=== PATIENT | female | born 1995 | race Caucasian/White ===

== ENCOUNTER 2023-06-04 17:16 | Emergency (ER) | payer MEDICAID ==
[~2023-06-04] VITALS: Ht 160 cm; Wt 64.0 kg
[2023-06-04 17:23] VITALS: BP 116/74; PULSE 78; RESP 18; TEMP 98.2; O2SAT 100
[2023-06-04] MEDS ORDERED: ONDANSETRON 4MG ODT PO ONE (17:45)
[2023-06-04] MEDS ORDERED: FAMOTIDINE 20MG TABLET PO ONE (17:45)
[2023-06-04] MEDS ORDERED: MAGNESIUM/ALUMINUM HYDROXIDE/SIMETHICONE 30ML UDC PO ONE (18:00)
[2023-06-04 18:12] LABS: BASOPHILS % 0.4 % (0.0-2.0); HEMATOCRIT. 30.3 % (36.0-48.0); HEMOGLOBIN. 10.3 g/dL (12.0-16.0); LYMPHOCYTES % 12.7 % (20.0-50.0); MEAN CORPUSCULAR HEMOGLOBIN 30.2 pg (28.0-32.0); MEAN CORPUSCULAR HGB CONC 34.1 g/dL (31.0-37.0); MEAN CORPUSCULAR VOLUME 88.8 fL (81.0-99.0); MEAN PLATELET VOLUME 8.2 fl (7.4-10.4); MONOCYTES % 6.1 % (2.0-8.0); NEUTROPHILS % 80.8 % (40.0-76.0); PLATELET 149 x1000/uL (130-400); RED BLOOD CELL COUNT 3.41 mill/uL (4.2-5.4); RED CELL DISTRIBUTION WIDTH 13.4 % (11.6-14.6); WHITE BLOOD COUNT 5.4 x1000/uL (4.5-11.0)
[2023-06-04 18:19] LABS: CHLORIDE 109 mEq/L (98-107); INDEX HEMOLYSI 1 (1-3); INDEX ICTERIC 1 (1-4); INDEX LIPEMIC 1 (1-3); POTASSIUM 3.7 mEq/L (3.5-5.1); SODIUM 136 mEq/L (136-145)
[2023-06-04 18:28] LABS: ALANINE AMINOTRANSFERASE 29 IU/L (13-61); ALBUMIN 3.4 g/dL (3.4-5.0); ASPARTATE AMINOTRANSFERASE 28 IU/L (15-37); BILIRUBIN TOTAL 0.8 mg/dL (0.1-1.0); CARBON DIOXIDE 23 mEq/L (21-32); CREATININE 0.6 mg/dL (0.6-1.3); GLUCOSE 89 mg/dL (70-105); PROTEIN TOTAL 8.3 g/dL (6.0-8.3); TROPONIN I HIGH SENSITIVITY 4 ng/L (<54); UREA NITROGEN BLOOD 9 mg/dL (7-21)
[2023-06-04 18:29] LABS: HCG SCREEN NEGATIVE
[2023-06-04] MEDS ORDERED: FAMO20TA8 PO (19:03)
[2023-06-04] MEDS ORDERED: ONDA4TAB11 PO (19:03)
[2023-06-04] MEDS ORDERED: MAG355OR21 MT (19:04)
[2023-06-04 19:14] LABS: CLARITY URINE CLOUDY (CLEAR); COLOR URINE YELLOW (YELLOW); GLUCOSE URINE NEGATIVE (NEGATIVE); KETONES URINE 2+ (NEGATIVE); LEUKOCYTE ESTERASE URINE 1+ (NEGATIVE); NITRITE URINE NEGATIVE (NEGATIVE); OCCULT BLOOD URINE NEGATIVE (NEGATIVE); PROTEIN URINE 2+ (NEGATIVE); SPECIFIC GRAVITY URINE 1.028 (1.005-1.030)
[2023-06-04 19:43] LABS: BACTERIA URINE 2+; RBC URINE 0-2 /hpf (0-2); SQUAMOUS EPITHELIAL CELL URINE 2+ /lpf (RARE/1+)
[2023-06-04] MEDS ORDERED: NITR-87 MT (20:03)
== END 2023-06-04 20:05 | disposition home or self-care (01) ==
LOC: ER 17:32
DX: R11.2 Nausea with vomiting, unspecified (principal); R07.89 Other chest pain; Z98.890 Other specified postprocedural states
CPT/HCPCS: 99285; 71045; 80053; 81003; 81025; 84703; 85025; 84484; 36415; 93005; Q0162